=== PATIENT | male | born 1975 | race Caucasian/White ===

== ENCOUNTER 2016-10-02 07:52 | Inpatient (IN) | payer BC ==
[2016-09-21 10:08] LABS: BASOPHILS 0.4 %; BASOPHILS ABSOLUTE 0.04 10/3/uL (0.0-0.16); EOSINOPHILS 1.7 %; EOSINOPHILS ABSOLUTE 0.19 10/3/uL (0.0-0.53); HEMATOCRIT 38.6 % (40.0-51.0); HEMOGLOBIN 12.4 g/dL (13.6-17.8); IMMATURE GRANULOCYTES 0.2 %; IMMATURE GRANULOCYTES ABSOLUTE 0.02 10/3/uL (0.0-0.11); LYMPHOCYTES ABSOLUTE 1.78 10/3/uL (0.67-4.30); MEAN CORPUS HGB CONC 32.1 g/dL (32.0-36.0); MEAN CORPUSCULAR HEMOGLOB 27.7 pg (26.0-34.0); MONOCYTES 5.5 %; MONOCYTES ABSOLUTE 0.61 10/3/uL (0.21-1.20); NEUTROPHILS 76.2 %; NEUTROPHILS ABSOLUTE 8.48 10/3/uL (2.02-8.40); PLATELET COUNT 246 10/3/uL (150-400); RBC DISTRIBUTION WIDTH 17.1 % (12.0-16.0); RED CELL COUNT 4.48 10/6/uL (4.7-6.1); WHITE BLOOD CELLS 11.1 10/3/uL (4.5-10.5)
[2016-09-21 10:14] LABS: PARTIAL THROMBO TIME 27.1 SEC (22.5-37.2); PROTIME (NOT ORD) 13.4 SEC (12.0-14.5)
[2016-09-21 10:15] LABS: MANUAL DIFF NO %; MEAN CORPUSCULAR VOLUME 86.2 fL (80-100)
[2016-09-21 10:24] LABS: A/G RATIO 1.1 (0.7-1.9); ALBUMIN 3.9 G/DL (3.5-5.0); CALCIUM, SERUM 9.2 MG/DL (8.5-10.4); CHLORIDE, SERUM 104 MMOL/L (96-112); CO2 (CARBON DIOXIDE) 27 MMOL/L (24-34); CREATININE 1.89 MG/DL (0.70-1.30); GFR AFRICAN AMERICAN 50 ML/MIN (>=60); GFR NON AFRICAN AMERICAN 43 ML/MIN (>=60); GLOBULIN 3.7 G/DL (2.5-4.1); GLUCOSE, SERUM 122 MG/DL (60-99); POTASSIUM, SERUM 4.1 MMOL/L (3.5-5.3); SGOT(AST) 6 U/L (5-40); SGPT(ALT) 16 U/L (5-65); SODIUM, SERUM 143 MMOL/L (135-148); TOTAL BILIRUBIN 0.9 MG/DL (0-1.2); TOTAL PROTEIN 7.6 G/DL (6.0-8.5)
[2016-09-21 10:27] LABS: ALKALINE PHOSPHATASE 62 U/L (45-117); BUN (BLOOD UREA NITROGEN) 50 MG/DL (6-23)
[2016-09-21 11:28] LABS: ASCORBIC ACID (UR NOT ORDER) NEG (NEG); BILIRUBIN, URINE NEGATIVE (NEG); KETONE, URINE NEGATIVE (NEG); LEUKOCYTE ESTERASE(NOT OR NEG (NEG); WBC (NOT ORDERED) (RFLEX) 1 (0-5)
--- NOTE | ~2016-10-02 | OP ---
Record Of Operation [facility] [address] [place]. [address] NAME: ESTRADA CHANDRA : 73 STATUS : ADM IN PAT#: [id number] AGE: 41 ADM/REG DATE : 10/02/16 MR#: [id number] REPORT SERV DATE: 10/02/16 DICTATED BY: YOLANDE FRANCO DATE: 10/02/16 REPORT STATUS : Draft TRANSCRIBED BY: MODL DATE: 10/02/16 DATE OF PROCEDURE: 10/02/2016 PREOPERATIVE DIAGNOSIS: Right hip arthritis. POSTOPERATIVE DIAGNOSIS: Right hip arthritis. PROCEDURE PERFORMED: Right total hip arthroplasty. SURGEON: Yolande Franco M.D. [employer] CONTRACTOR: Gretchen Trinidad. ANESTHESIA: General with local infusion. PROCEDURE IN DETAIL: The patient is clearly identified and after obtaining informed consent is brought to the operating room at [facility] where here the patient is induced under general anesthesia and subsequently placed in the left lateral decubitus position. This concluded, the thigh and flank are prepped and draped in the usual manner. A time-out procedure successfully performed and after registering the knee and marking the anatomy through an approximately 4.5 incision, the skin is divided. The fascial planes are divided. The lateral fascia then is divided. Hemostasis is obtained with electrocautery and a Charnley retractor is applied. The piriformis is identified, tagged, divided, and retracted over the sciatic nerve felt deep in the wound. At which point, the mini approach to the hip is formed with dividing the capsule in a mini approach with a cuff of tissues remaining at the femoral side to accomplish repair at the conclusion of the case. Dislocating the hip, end-stage arthritic changes are noted. The tissue surrounding the femoral neck are protected with the Hohmann retractor and the femoral neck cut is made according to preoperative templating. This concluded, the femoral head is removed. The acetabulum is exposed. The labral and fluvial tissues are removed and reaming is performed. Subsequently trialing with the appropriate trial, the permanent acetabular components placed with the [place]. At which point, the acetabular trial component is then placed. The proximal femur is then addressed. The structures posteromedial to the greater trochanter are removed and this concluded the cookie-cutter canal finder lateralizer and reaming is performed. This concluded, broaching is performed and with excellent fit-fill and stability for the implant trialing is performed finding excellent leg length, stability, no impingement, good kickback, no push-pull, and the lesser trochanter palpably at the appropriate distance from the ischium when compared to preoperative templating. The trials were felt to be appropriate. These are all then removed and the permanent implants are then carefully applied uneventfully. Copious irrigation is then performed with same stability and findings noted after insertion. At which point, the joint then is carefully closed in layers including capsule, piriformis, lateral fascia, deep tissues, and skin. Aquacel dressing is applied and the patient is then allowed to awaken, is placed supine and is returned to the recovery room in stable condition having tolerated the procedure well. ESTIMATED BLOOD LOSS: 200. Record Of Operation [facility] [address] [place]. [address] NAME: ESTRADA CHANDRA : 73 STATUS : ADM IN [facility]#: [id number] AGE: 41 ADM/REG DATE : 10/02/16 MR#: [id number] REPORT SERV DATE: 10/02/16 DICTATED BY: YOLANDE FRANCO DATE: 10/02/16 REPORT STATUS : Draft TRANSCRIBED BY: ESTEBAN DATE: 10/02/16 FLUIDS: 1400. TOURNIQUET TIME: None. PATHOLOGY: Sent specimen. MICROBIOLOGY: None. COMPLICATIONS: None. SPONGE AND NEEDLE COUNTS: Reportedly correct. ANTIBIOTICS: Administered appropriately preoperatively and ordered to be discontinued within 23 hours. IMPLANTS: DePuy Hip System, femur [place], size 8 standard +1.5/36 ceramic head. Acetabulum, [place] sector size 54 with a +4 neutral liner, and no screws. SAMANTHA/ESTEBAN Yolande Franco M.D. / [id number] CC: Dora Cid M.D.
[~2016-10-02 07:52] MED LIST: ASA5GR PO; C5 PO; CARDU4 PO; CELERY SEED EXTRACT PO; CENTRUM PO; CINNAMONPO PO; COLCRYS0.6 MG PO; COREG12 PO; COREGCR40 PO; DEMA100 PO; DILT-XR240 MG PO; DIOVAN320 MG PO; FISH-EPA1000 MG PO; ICY HOT16 % TOP; LEVEMFLXPN SC; NASONEX NAS; NEORAL100 MG/ML OR; NEUR100 PO; NOVOPEN SQ; OXYCONTIN15 MG PO; OXYIR5 MG PO; P5 PO; PEP20 PO; PREV30 PO; RAPAMUNE PO; RAPAMUNE1 MG/ML PO; SPIRO25 PO; TEKTURNA300 MG PO; TYLENOL SINUS PO; VITAMIN B-12 OTC PO; VITAMIN B-122500 MCG SL; Z100 PO; [UNRECOGNIZED DRUG - OTHER] PO
[2016-10-03 05:45] LABS: HEMOGLOBIN 10.8 g/dL (13.6-17.8)
[2016-10-03 05:49] LABS: HEMATOCRIT 33.8 % (40.0-51.0)
[2016-10-03 05:50] LABS: CALCIUM, SERUM 8.6 MG/DL (8.5-10.4); CHLORIDE, SERUM 102 MMOL/L (96-112); CO2 (CARBON DIOXIDE) 26 MMOL/L (24-34); GFR AFRICAN AMERICAN 46 ML/MIN (>=60); GFR NON AFRICAN AMERICAN 40 ML/MIN (>=60); POTASSIUM, SERUM 4.7 MMOL/L (3.5-5.3); SODIUM, SERUM 138 MMOL/L (135-148)
[2016-10-03 05:51] LABS: BUN (BLOOD UREA NITROGEN) 43 MG/DL (6-23); GLUCOSE, SERUM 169 MG/DL (60-99)
[2016-10-03 05:56] LABS: INTERNATIONAL NORMAL RATI 1.1 UNITS (-); PROTIME (NOT ORD) 14.4 SEC (12.0-14.5)
[2016-10-03] MEDS ORDERED: C5 PO (13:46)
== END 2016-10-03 14:27 | disposition home or self-care (01) | DRG 470 ==
LOC: SDC/OF 07:52 → PACU 12:54 → 3JRC 13:46
PROVIDERS: Orthopaedic Surgery
PROC: 0SRB02A Replacement of Left Hip Joint with Metal on Polyethylene Synthetic Substitute, Uncemented, Open Approach (ICD-10-PCS; principal; 2016-10-02 09:15)
DX: M87.851 Other osteonecrosis, right femur (principal); Z68.42 Body mass index [BMI] 45.0-49.9, adult; I10 Essential (primary) hypertension; Z79.82 Long term (current) use of aspirin; Z79.899 Other long term (current) drug therapy; Z79.4 Long term (current) use of insulin; Z79.52 Long term (current) use of systemic steroids; Z88.2 Allergy status to sulfonamides; Z96.642 Presence of left artificial hip joint; G47.33 Obstructive sleep apnea (adult) (pediatric); Z98.84 Bariatric surgery status; E66.9 Obesity, unspecified
CPT/HCPCS: 36415; 72170; 80048; 80053; 81001; 82962; 85014; 85018; 85025; 85610; 85730; 86850; 86900; 86901; 87641; 88304; 88311; 93005; 97110-GP; 97161-GP; 97165-GO; A9270-GY; C1776; J0690; J1170; J2250; J2274; J2370; J2405; J2710; J2795; J3010